=== PATIENT | female | born 1970 | race Two or more races ===

== ENCOUNTER 2024-03-08 22:58 | Inpatient (IN) | payer OTHER ==
[2024-03-08 23:09] VITALS: BMI 26.4
[2024-03-09] MEDS ORDERED: ONDANSETRON *ODT* 4 MG TABLET ONE (00:15)
[2024-03-09] MEDS ORDERED: ACETAMINOPHEN 325 MG TABLET (FP) ONE (00:15)
[2024-03-09] MEDS ORDERED: DICYCLOMINE HCL 10 MG CAPSULE ONE (00:15)
[2024-03-09] MEDS ORDERED: FAMOTIDINE 20 MG TABLET ONE (00:15)
[2024-03-09] MEDS ORDERED: MAG HYDROX/AL HYDROX/SIMETH 30 ML UNIT-DOSE CUP ONE (00:16)
[2024-03-09] MEDS: DICYCLOMINE HCL 20 MG TABLET PO ONE (00:34)
[2024-03-09] MEDS: MAG HYDROX/AL HYDROX/SIMETH 30 ML UNIT-DOSE CUP PO ONE (00:34)
[2024-03-09] MEDS: FAMOTIDINE 20 MG TABLET PO ONE (00:35)
[2024-03-09] MEDS: ONDANSETRON *ODT* 4 MG TABLET SL ONE (00:35)
[2024-03-09] MEDS: ACETAMINOPHEN 325 MG TABLET (FP) PO ONE (00:35)
[2024-03-09 00:41] LABS: BASO % 0.6 % (0-2.0); EOS % 1.3 % (0-4.5); HEMATOCRIT 37.4 % (32.4-45.2); HEMOGLOBIN 12.4 GM/dL (10.7-15.3); LYMPH % 26.5 % (8-40); MCH 28.4 pg (25.7-33.7); MCHC 33.2 g/dl (32.0-36.0); MEAN CELL VOLUME 85.5 fl (80-96); MEAN PLT VOLUME 6.9 fl (7.5-11.1); MONO % 6.5 % (3.8-10.2); NEUT % 65.1 % (42.8-82.8); PLATELET COUNT 373 10^3/uL (134-434); RBC 4.38 M/mm3 (3.60-5.2); RDW 13.7 % (11.6-15.6); WHITE BLOOD COUNT 9.2 K/mm3 (4.0-10.0)
[2024-03-09 00:48] LABS: INR 1.05 (0.83-1.09); PROTHROMBIN TIME (PATIENT) 11.8 SEC (9.7-13.0)
[2024-03-09 00:51] LABS: ACTIVATED PTT 33.4 SECONDS (25.2-36.5)
[2024-03-09 01:00] LABS: POTASSIUM 4.1 mmol/L (3.5-5.1)
[2024-03-09 01:02] LABS: CALCIUM 9.6 mg/dL (8.5-10.1)
[2024-03-09 01:03] LABS: ALBUMIN 3.9 g/dl (3.4-5.0); BLOOD UREA NITROGEN 8.6 mg/dL (7-18); MAGNESIUM 2.1 mg/dL (1.8-2.4)
[2024-03-09] MEDS ORDERED: CEFTRIAXONE 1 GM/50 ML BAG ONE (01:03)
[2024-03-09 01:06] LABS: CREATININE 0.7 mg/dL (0.55-1.3)
[2024-03-09 01:07] LABS: BILIRUBIN,TOTAL 0.4 mg/dL (0.2-1); TOT PROT 8.8 g/dl (6.4-8.2)
[2024-03-09 01:51] LABS: EPI CELLS 4 /uL (0-25.1); HYALINE CASTS 0 /uL (0-3.1); PH,URINE 7.5 (5.0-8.0); URINE APPEARANCE CLEAR; URINE BACTERIA 51 /uL (0-1359); URINE BILIRUBIN NEGATIVE (NEGATIVE); URINE COLOR YELLOW; URINE GLUCOSE (UA) NEGATIVE (NEGATIVE); URINE KETONE NEGATIVE (NEGATIVE); URINE LEUK ESTERASE TRACE (NEGATIVE); URINE NITRITE NEGATIVE (NEGATIVE); URINE PROTEIN NEGATIVE (NEGATIVE); URINE RBC 6 /uL (0-23.9); URINE UROBILINOGEN 0.2 mg/dL (0.2-1.0); URINE WBC 14 /uL (0-25.8)
[2024-03-09] MEDS: SODIUM CHLORIDE 1,000 ML IV SCH (03:48)
[2024-03-09] MEDS ORDERED: MORPHINE SULFATE 2 MG/ML SYRINGE ONE (04:14)
[2024-03-09] MEDS: morphine SULFATE 4 MG/ML VIAL IVPUSH PRN (04:23)
[2024-03-09 10:13] LABS: INR 1.07 (0.83-1.09); PROTHROMBIN TIME (PATIENT) 12.3 SEC (9.7-13.0)
[2024-03-09 10:18] LABS: HEMOGLOBIN 11.7 GM/dL (10.7-15.3); MCH 28.8 pg (25.7-33.7); MCHC 33.5 g/dl (32.0-36.0); MEAN CELL VOLUME 85.8 fl (80-96); MEAN PLT VOLUME 7.2 fl (7.5-11.1); PLATELET COUNT 338 10^3/uL (134-434); RBC 4.08 M/mm3 (3.60-5.2); RDW 13.4 % (11.6-15.6); WHITE BLOOD COUNT 8.2 K/mm3 (4.0-10.0)
[2024-03-09 11:07] LABS: CALCIUM 9.3 mg/dL (8.5-10.1)
[2024-03-09 11:08] LABS: BLOOD UREA NITROGEN 8.4 mg/dL (7-18)
[2024-03-09 11:09] LABS: MAGNESIUM 2.1 mg/dL (1.8-2.4)
[2024-03-09 11:12] LABS: CREATININE 0.7 mg/dL (0.55-1.3); PHOSPHOROUS 3.3 mg/dL (2.5-4.9)
[2024-03-09] MEDS: ONDANSETRON 4 MG/2 ML VIAL IVPUSH PRN (18:18)
[2024-03-09] MEDS: ACETAMINOPHEN 1000 MG/100 ML BAG IVPB ONE (20:33)
[2024-03-09] MEDS: CEFTRIAXONE 1 G/50 ML PREMIX 50 ML IVPB SCH (23:42)
[2024-03-10] MEDS ORDERED: CEFTRIAXONE 1 GM in DEXTROSE 5%-WATER - 50 ML IVPB SCH
[2024-03-10] MEDS: ACETAMINOPHEN 1000 MG/100 ML BAG IVPB ONE ×2 (05:12)
[2024-03-10] MEDS: ACETAMINOPHEN 1000 MG/100 ML BAG IVPB PRN (13:02)
[2024-03-11] MEDS: ceFAZolin SODIUM 1 GM VIAL IVPB ONE
[2024-03-11] MEDS ORDERED: ceFAZolin SODIUM 1 GM VIAL ONE (08:07)
[2024-03-11] MEDS ORDERED: BUPIVACAINE HCL/PF 0.25% (2.5MG/ML) 10 ML VIAL ONE (08:07)
[2024-03-11] MEDS ORDERED: INDOCYANINE GREEN 25 MG/10 ML VIAL IVPUSH ONE (08:07)
[2024-03-11] MEDS ORDERED: HEPARIN NA (PORCINE) 5,000 UNITS/ML 1ML VIAL ONE (08:08)
[2024-03-11] MEDS ORDERED: PROPOFOL 20 ML ONE (08:35)
[2024-03-11] MEDS ORDERED: MIDAZOLAM HCL 2 MG/2 ML SINGLE DOSE VIAL ONE (08:36)
[2024-03-11] MEDS ORDERED: ROCURONIUM BROMIDE 50 MG/5 ML SYRINGE ONE (08:39)
[2024-03-11] MEDS: cefOXitin SODIUM 2 GM VIAL (RESTRICTED TO ID) IVPB ONE (09:12)
[2024-03-11] MEDS ORDERED: cefOXitin SODIUM 2 GM VIAL (RESTRICTED TO ID) IVPB ONE (09:16)
[2024-03-11] MEDS: BUPIVACAINE HCL/PF 0.25% (2.5MG/ML) 10 ML VIAL IJ ONE ×3 (09:20)
[2024-03-11] MEDS ORDERED: NEOSTIGMINE METHYLSULFATE 0.5 MG/1 ML - 10 ML MDV ONE ×2 (09:27→12:03)
[2024-03-11] MEDS: LACTATED RINGERS SOLUTION 1,000 ML IV SCH ×2 (11:00→12:45)
[2024-03-11] MEDS ORDERED: ACETAMINOPHEN INJECTION 100 ML ONE (11:00)
[2024-03-11] MEDS: ACETAMINOPHEN 1000 MG/100 ML BAG IVPB ONE (11:01)
[2024-03-11] MEDS ORDERED: cefTRIAXone SODIUM 1 GM VIAL ONE (11:26)
[2024-03-11] MEDS ORDERED: KETOROLAC TROMETHAMINE 30 MG/1 ML VIAL ONE (11:33)
[2024-03-11] MEDS ORDERED: DEXAMETHASONE SOD PHOSPHATE 4 MG/1 ML VIAL ONE (11:33)
[2024-03-11] MEDS ORDERED: ONDANSETRON 4 MG/2 ML VIAL ONE (11:33)
[2024-03-11] MEDS ORDERED: ONDANSETRON 4 MG/2 ML VIAL IVPUSH PRN (11:36)
[2024-03-11] MEDS ORDERED: HYDROmorphone HCl 2 MG/ML VIAL ONE (11:52)
[2024-03-11] MEDS: ACETAMINOPHEN 325 MG TABLET (FP) PO SCH (12:12)
[2024-03-11] MEDS ORDERED: GLYCOPYRROLATE 0.2 MG/1 ML VIAL ONE (12:12)
[2024-03-11 15:11] LABS: BASO % 0.2 % (0-2.0); HEMATOCRIT 33.3 % (32.4-45.2); LYMPH % 9.7 % (8-40); MCH 28.4 pg (25.7-33.7); MCHC 33.2 g/dl (32.0-36.0); MEAN CELL VOLUME 85.6 fl (80-96); MEAN PLT VOLUME 7.3 fl (7.5-11.1); MONO % 1.4 % (3.8-10.2); NEUT % 88.7 % (42.8-82.8); PLATELET COUNT 322 10^3/uL (134-434); RBC 3.89 M/mm3 (3.60-5.2); RDW 13.5 % (11.6-15.6); WHITE BLOOD COUNT 9.5 K/mm3 (4.0-10.0)
[2024-03-11 15:27] LABS: POTASSIUM 4.2 mmol/L (3.5-5.1)
[2024-03-11 15:29] LABS: CALCIUM 8.6 mg/dL (8.5-10.1)
[2024-03-11 15:30] LABS: BLOOD UREA NITROGEN 10.7 mg/dL (7-18)
[2024-03-11 15:33] LABS: CREATININE 0.6 mg/dL (0.55-1.3)
[2024-03-11 15:35] LABS: BILIRUBIN,TOTAL 0.4 mg/dL (0.2-1); TOT PROT 7.5 g/dl (6.4-8.2)
[2024-03-11 15:37] LABS: ALBUMIN 3.1 g/dl (3.4-5.0)
[2024-03-11] MEDS: oxyCODONE HCL 5 MG TABLET PO PRN (22:05)
[2024-03-12] MEDS: MELATONIN 5 MG TABLETS PO PRN (00:50)
[2024-03-12] MEDS ORDERED: CEFTRIAXONE 1 G/50 ML PREMIX 50 ML IVPB SCH (10:00)
[2024-03-12 14:19] VITALS: BP 116/65; PULSE 66; RESP 18; TEMP 98.2
== END 2024-03-12 14:50 | disposition home or self-care (01) | DRG 263 ==
LOC: JER 22:58 → JERBED 03-09 01:13 → J6S 03-09 05:27
PROVIDERS: ADMIT Internal Medicine; ATTEND Internal Medicine
PROC: 0FT44ZZ Resection of Gallbladder, Percutaneous Endoscopic Approach (ICD-10-PCS; principal; 2024-03-11 10:00)
DX: K80.00 Calculus of gallbladder with acute cholecystitis without obstruction (principal); K21.9 Gastro-esophageal reflux disease without esophagitis; R10.11 Right upper quadrant pain; R11.2 Nausea with vomiting, unspecified
CPT/HCPCS: 36415; 71046-TC-FY; 76705-TC; 80048; 80053; 81003; 83690; 83735; 84100; 84484; 85025; 85027; 85610; 85730; 86850; 86900; 86901; 87086; 88304-TC; 93005; 93010; 94010; 94760; 99285-25; J0131; J1644; Q0162